=== PATIENT | male | born 1985 | race Caucasian/White ===

== ENCOUNTER 2018-08-04 12:35 | Inpatient (IN) | payer MEDICAID ==
[~2018-08-04] VITALS: Ht 175.3 cm; Wt 98.9 kg
[~2018-08-04 12:35] MED LIST: OMEP40CA34 PO
[2018-08-04] MEDS ORDERED: SODIUM CHLORIDE 0.9% 1,000 ML IV ONE ×2 (13:18→15:44)
[2018-08-04] MEDS ORDERED: FAMOTIDINE 20MG/2ML VIAL IV STA (13:18)
[2018-08-04] MEDS ORDERED: ONDANSETRON HCL 4MG/2ML INJ IV STA ×2 (13:18→15:44)
[2018-08-04] MEDS ORDERED: MORPHINE SULFATE 4 MG/ML CPJ (NOT FOR IM USE) IV STA ×2 (13:18→15:44)
[2018-08-04 14:09] LABS: BASOPHILS % 0.6 % (0.0-2.0); EOSINOPHILS % 2.4 % (0.0-5.0); HEMATOCRIT. 41.4 % (42.0-52.0); HEMOGLOBIN. 14.1 g/dL (14.0-18.0); MEAN CORPUSCULAR HEMOGLOBIN 29.8 pg (28.0-32.0); MEAN CORPUSCULAR VOLUME 87.4 fL (80.0-94.0); MEAN PLATELET VOLUME 9.3 fl (7.4-10.4); MONOCYTES % 9.2 % (2.0-8.0); NEUTROPHILS % 55.8 % (40.0-76.0); PLATELET 183 x1000/uL (130-400); RED BLOOD CELL COUNT 4.74 mill/uL (4.7-6.1); RED CELL DISTRIBUTION WIDTH 13.2 % (11.6-14.6)
[2018-08-04 14:15] LABS: CHLORIDE 105 mEq/L (98-107)
[2018-08-04 14:18] LABS: PARTIAL THROMBOPLASTIN TIME 26.6 sec (23.4-31.0); PROTHROMBIN TIME 10.3 sec (9.1-11.1)
[2018-08-04 14:20] LABS: ETHANOL BLOOD < 10 mg/dL
[2018-08-04 16:00] VITALS: BP 92/60
[2018-08-04 17:30] VITALS: BP 92/60
[2018-08-04] MEDS ORDERED: ACETAMINOPHEN 650MG SUPP PR PRN (18:00)
[2018-08-04] MEDS ORDERED: DIPHENHYDRAMINE 50MG/ML VIAL IV PRN (18:00)
[2018-08-04] MEDS ORDERED: IPRATROPIUM/ALBUTEROL 0.5-3(2.5)MG/3ML NEB INH PRN (18:00)
[2018-08-04] MEDS ORDERED: ONDANSETRON HCL 4MG/2ML INJ IV PRN (18:00)
[2018-08-04] MEDS ORDERED: MORPHINE SULFATE 4 MG/ML CPJ (NOT FOR IM USE) IV PRN (19:09)
[2018-08-04 20:00] VITALS: BP 105/58
[2018-08-04] MEDS ORDERED: DEXT 5%/0.45% NACL 1000ML 1,000 ML IV SCH (20:00)
[2018-08-04] MEDS: ENOXAPARIN 30MG/0.3ML SYR SUBCUT SCH (20:51)
[2018-08-04] MEDS: LEVOFLOXACIN 500MG PREMIX 100 ML IV SCH (20:51)
[2018-08-04] MEDS: METRONIDAZOLE 500 MG PREMIX 100 ML IV SCH (21:01)
[2018-08-04] MEDS ORDERED: CHLORHEXIDINE GLUCONATE 4% EXTERNAL USE TOP SCH (22:30)
[2018-08-05] VITALS (11 sets, daily range): BP systolic 95–123; BP diastolic 55–78
[2018-08-05] MEDS: METRONIDAZOLE 500 MG PREMIX 100 ML IV SCH ×3 (06:45→21:49)
[2018-08-05 08:23] LABS: BASOPHILS % 0.7 % (0.0-2.0); EOSINOPHILS % 2.6 % (0.0-5.0); HEMATOCRIT. 40.8 % (42.0-52.0); HEMOGLOBIN. 13.6 g/dL (14.0-18.0); LYMPHOCYTES % 35.1 % (20.0-50.0); MEAN CORPUSCULAR HEMOGLOBIN 29.5 pg (28.0-32.0); MEAN CORPUSCULAR VOLUME 88.3 fL (80.0-94.0); MEAN PLATELET VOLUME 9.2 fl (7.4-10.4); MONOCYTES % 11.1 % (2.0-8.0); NEUTROPHILS % 50.5 % (40.0-76.0); PLATELET 183 x1000/uL (130-400); RED BLOOD CELL COUNT 4.62 mill/uL (4.7-6.1); RED CELL DISTRIBUTION WIDTH 13.1 % (11.6-14.6)
[2018-08-05] MEDS ORDERED: ROCURONIUM BROMIDE 10MG/ML VIAL 5ML IV ONE (08:38)
[2018-08-05] MEDS ORDERED: FENTANYL CITRATE/PF 50MCG/ML 2ML VIAL ONE ×2 (08:38→10:44)
[2018-08-05] MEDS ORDERED: MIDAZOLAM HCL 2 MG/2 ML VIAL ONE (08:38)
[2018-08-05] MEDS ORDERED: PROPOFOL 200MG/20ML VIAL IV ONE (08:38)
[2018-08-05] MEDS: PANTOPRAZOLE SODIUM 40 MG/VIAL IV SCH (09:00)
[2018-08-05] MEDS: ENOXAPARIN 30MG/0.3ML SYR SUBCUT SCH ×2 (09:00→20:32)
[2018-08-05] MEDS ORDERED: MORPHINE SULFATE 4 MG/ML CPJ (NOT FOR IM USE) IV PRN ×2 (09:30)
[2018-08-05] MEDS ORDERED: ONDANSETRON HCL 4MG/2ML INJ IV PRN ×2 (09:30→11:00)
[2018-08-05] MEDS ORDERED: HYDROCODONE/ACETAMINOPHEN 5/325MG TABLET PO PRN ×2 (09:30)
[2018-08-05 09:33] LABS: CHLORIDE 104 mEq/L (98-107)
[2018-08-05] MEDS ORDERED: SKIN ADHESIVE 0.7 GM EA TOP ONE (09:36)
[2018-08-05] MEDS ORDERED: BUPIVACAINE HCL 0.5% (5MG/ML) 50ML ONE (09:37)
[2018-08-05 09:47] LABS: LDL CHOLESTEROL 150 mg/dL (5-100)
[2018-08-05 09:52] LABS: HDL CHOLESTEROL 47 mg/dL (40-59)
[2018-08-05] MEDS ORDERED: GLYCOPYRROLATE 0.2 MG/ML 2ML VIAL ONE ×2 (10:28→10:29)
[2018-08-05] MEDS ORDERED: HYDROMORPHONE HCL/PF 2MG/ML CPJ IV PRN (11:00)
[2018-08-05] MEDS: DEXT 5%/0.45% NACL KCL 20MEQ/L 1,000 ML IV SCH (12:56)
[2018-08-05] MEDS: SODIUM CHLORIDE 0.9% INJ 3ML FLUSH IVF SCH ×2 (14:54→21:49)
[2018-08-05 19:38] LABS: CHLORIDE 103 mEq/L (98-107)
[2018-08-05] MEDS: LEVOFLOXACIN 500MG PREMIX 100 ML IV SCH (20:34)
[2018-08-05] MEDS ORDERED: ATORVASTATIN CALCIUM 10MG TABLET PO SCH (21:00)
[2018-08-06] VITALS: BP 105/71
[2018-08-06] MEDS: DEXT 5%/0.45% NACL KCL 20MEQ/L 1,000 ML IV SCH (01:29)
[2018-08-06 04:00] VITALS: BP 113/77
[2018-08-06] MEDS ORDERED: ACETAMINOPHEN 325MG TABLET PO PRN (05:30)
[2018-08-06] MEDS: METRONIDAZOLE 500 MG PREMIX 100 ML IV SCH (05:32)
[2018-08-06] MEDS: SODIUM CHLORIDE 0.9% INJ 3ML FLUSH IVF SCH (05:33)
[2018-08-06 06:16] LABS: HEMATOCRIT 40.1 % (42.0-52.0); HEMOGLOBIN 13.8 g/dL (14.0-18.0); MEAN CORPUSCULAR HEMOGLOBIN 30.2 pg (28.0-32.0); PLATELET 146 x1000/uL (130-400); RED BLOOD CELL COUNT 4.56 mill/uL (4.7-6.1); RED CELL DISTRIBUTION WIDTH 13.2 % (11.6-14.6)
[2018-08-06] MEDS: PANTOPRAZOLE SODIUM 40 MG/VIAL IV SCH (09:11)
[2018-08-06] MEDS: ENOXAPARIN 30MG/0.3ML SYR SUBCUT SCH (09:14)
[2018-08-06 11:09] VITALS: BP 126/63
== END 2018-08-06 12:15 | disposition home or self-care (01) | DRG 263 ==
LOC: ER 14:04 → EDBEDREQ 15:09 → ENRESERV 16:22 → 6EST 17:48
PROVIDERS: ADMIT Internal Medicine; ATTEND Internal Medicine
PROC: 0FT44ZZ Resection of Gallbladder, Percutaneous Endoscopic Approach (ICD-10-PCS; principal; 2018-08-05 10:30)
DX: K80.00 Calculus of gallbladder with acute cholecystitis without obstruction (principal); E66.9 Obesity, unspecified; E78.5 Hyperlipidemia, unspecified; K21.9 Gastro-esophageal reflux disease without esophagitis; Z88.0 Allergy status to penicillin; Z68.32 Body mass index [BMI] 32.0-32.9, adult
CPT/HCPCS: 36415; 76705; 78227; 80048; 80061; 84443; 84484; 85027; 88304; 96361; 96374; 96375; 99291; A9537; C9113; G0482; J1650; J1956; J2250; J2270; J2405; J2704; J3010; J3490; J7030